=== PATIENT | female | born 1980 | race Caucasian/White ===

== ENCOUNTER 2017-01-18 16:24 | Inpatient (IN) | payer OTHER, MEDICARE ==
[~2017-01-18] VITALS: Ht 165.1 cm; Wt 97.7 kg
[~2017-01-18 16:24] MED LIST: ARGI500C2 PO; AVIATAB PO; BIOTCAP PO; CELE200C PO; FENT25DI T-DERMAL; FOLI20CA PO; GLUC1TAB41 PO; LEVO1CAP7 PO; LEXA20TA PO; METH2.5T PO; MILK200C2 PO; NITR0.1D T-DERMAL; OMEP20TA PO; TIZA1POW4 PO; VITA100064 PO; Z.0.NO CURRENT MEDS; [UNRECOGNIZED DRUG - CODE] IV
[2017-01-18 16:26] VITALS: BP 146/87; PULSE 127; RESP 18; TEMP 98.4; O2SAT 98
[2017-01-18 16:45] VITALS: BP 134/85; PULSE 111; RESP 20; TEMP 98.4; O2SAT 99
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
[2017-01-18] MEDS ORDERED: SODIUM CHLORIDE 0.9% FLUSH 10 ML FLUSH IVF PRN (17:00)
--- NOTE | 2017-01-18 17:21 | RADRPT ---
EXAM DATE/TIME: 01/18/2017 16:56 [facility] COMPARISON: No previous studies available for comparison. INDICATIONS : Chest pain and shortness of breath. MEDICAL HISTORY : None. SURGICAL HISTORY : Heart stent. ENCOUNTER: Initial ACUITY: 3 days PAIN SCORE: 9/10 LOCATION: Bilateral chest FINDINGS: Airspace process is present right lower lobe suspicious for pneumonia. Heart and mediastinum are unre markable for technique. CONCLUSION: Right lower lobe pneumonia. Mala Goldstein MD on January 18, 2017 at 17:18 Board Certified Radiologist. This report was verified electronically.
[2017-01-18 17:24] VITALS: BP_SYST 137; BP_SYST 140; BP_DIAS 84; BP_DIAS 85
[2017-01-18] MEDS ORDERED: SODIUM CHLOR 0.9% 1000 ML INJ 1,000 ML IV ONE (17:24)
[2017-01-18] MEDS ORDERED: cefTRIAXone INJ 2,000 MG in SODIUM CHLORIDE 0.9% INJ 100 ML IV STA (17:24)
[2017-01-18] MEDS ORDERED: AZITHROMYCIN INJ 500 MG in SODIUM CHLOR 0.9% 250 ML INJ 250 ML IV STA (17:24)
[2017-01-18] MEDS ORDERED: OMEP40CA2 PO (18:10)
[2017-01-18] MEDS ORDERED: METO25TA3 PO (18:10)
[2017-01-18] MEDS ORDERED: FOLI1TAB6 PO (18:10)
[2017-01-18] MEDS ORDERED: TIZA4TAB PO (18:10)
[2017-01-18] MEDS ORDERED: AMIT25TA9 PO (18:13)
[2017-01-18 19:10] LABS: AUTOMATED NEUTROPHIL # 6.2 TH/MM3 (1.8-7.7); BASOPHIL # 0.1 TH/MM3 (0-0.2); BASOPHIL % 0.6 % (0.0-2.0); EOSINOPHIL # 0.1 TH/MM3 (0-0.4); EOSINOPHIL % 0.8 % (0.0-4.0); HEMATOCRIT 32.7 % (35.0-46.0); HEMO FLAGS DIFF FINAL; LYMPH % 13.1 % (9.0-44.0); LYMPHOCYTE # 1.1 TH/MM3 (1.0-4.8); MEAN CELL VOLUME 84.1 FL (80.0-100.0); MEAN CORPUSCULAR HEMOGLOBIN 28.4 PG (27.0-34.0); MEAN CORPUSCULAR HGB CONC 33.8 % (32.0-36.0); MONO % 13.6 % (0.0-8.0); NEUT % 71.9 % (16.0-70.0); PLATELET COUNT 458 TH/MM3 (150-450); RED BLOOD COUNT 3.89 MIL/MM3 (4.00-5.30); RED CELL DISTRIBUTION WIDTH 15.7 % (11.6-17.2); WHITE BLOOD COUNT 8.6 TH/MM3 (4.0-11.0)
--- NOTE | 2017-01-18 19:26 | PD ---
Data Data Last Documented VS Vital Signs Date Time Temp Pulse Resp B/P Pulse Ox O2 Delivery O2 Flow Rate FiO2 01/18/17 21:50 91 16 142/86 99 Room Air 01/18/17 16:45 2 01/18/17 16:45 98.4 Orders Electrocardiogram (01/18/17 ) Ckmb (Isoenzyme) Profile (01/18/17 16:46) Complete Blood Count With Diff (01/18/17 16:46) Comprehensive Metabolic Panel (01/18/17 16:46) D-Dimer (01/18/17 16:46) Magnesium (Mg) (01/18/17 16:46) Prothrombin Time / Inr (Pt) (01/18/17 16:46) Act Partial Throm Time (Ptt) (01/18/17 16:46) Troponin I (01/18/17 16:46) Chest, Single Ap (01/18/17 16:46) Ecg Monitoring (01/18/17 16:46) Bilateral Bp Monitoring (01/18/17 16:46) Iv Access Insert/Monitor (01/18/17 16:46) Oximetry (01/18/17 16:46) Oxygen Administration (01/18/17 16:46) Sodium Chloride 0.9% Flush (Ns Flush) (01/18/17 17:00) Vascular Access Team Consult/P PRN (01/18/17 16:59) Vascular Poc Ultrasound (01/18/17 ) Lactic Acid Sepsis Protocol (01/18/17 17:24) Blood Culture (01/18/17 17:24) Ceftriaxone Inj (Rocephin Inj) (01/18/17 17:24) Azithromycin Inj (Zithromax Inj) (01/18/17 17:24) Sodium Chlor 0.9% 1000 Ml Inj (Ns 1000 M (01/18/17 17:24) Ct Pulmonary Angiogram (01/18/17 21:22) Iohexol 350 Inj (Omnipaque 350 Inj) (01/18/17 22:01) Admit Order (Ed Use Only) (01/18/17 22:36) Enoxaparin Inj (Lovenox Inj) (01/18/17 22:45) Rivaroxaban (Xarelto) (01/18/17 22:45) Labs Laboratory Tests Test 01/18/17 01/18/17 18:25 20:40 White Blood Count 8.6 TH/MM3 Red Blood Count 3.89 MIL/MM3 Hemoglobin 11.0 GM/DL Hematocrit 32.7 % Mean Corpuscular Volume 84.1 FL Mean Corpuscular Hemoglobin 28.4 PG Mean Corpuscular Hemoglobin 33.8 % Concent Red Cell Distribution Width 15.7 % Platelet Count 458 TH/MM3 Mean Platelet Volume 7.2 FL Neutrophils (%) (Auto) 71.9 % Lymphocytes (%) (Auto) 13.1 % Monocytes (%) (Auto) 13.6 % Eosinophils (%) (Auto) 0.8 % Basophils (%) (Auto) 0.6 % Neutrophils # (Auto) 6.2 TH/MM3 Lymphocytes # (Auto) 1.1 TH/MM3 Monocytes # (Auto) 1.2 TH/MM3 Eosinophils # (Auto) 0.1 TH/MM3 Basophils # (Auto) 0.1 TH/MM3 CBC Comment DIFF FINAL Differential Comment Lactic Acid Level 1.1 mmol/L Prothrombin Time 10.5 SEC Prothromb Time International 1.0 RATIO Ratio Activated Partial 30.1 SEC Thromboplast Time D-Dimer Quantitative (PE/DVT) 1.15 MG/L FEU Sodium Level 137 MEQ/L Potassium Level 4.1 MEQ/L Chloride Level 105 MEQ/L Carbon Dioxide Level 26.4 MEQ/L Anion Gap 6 MEQ/L Blood Urea Nitrogen 10 MG/DL Creatinine 0.65 MG/DL Estimat Glomerular Filtration 103 ML/MIN Rate Random Glucose 106 MG/DL Calcium Level 8.3 MG/DL Magnesium Level 1.7 MG/DL Total Bilirubin 0.2 MG/DL Aspartate Amino Transf 28 U/L (AST/SGOT) Alanine Aminotransferase 36 U/L (ALT/SGPT) Alkaline Phosphatase 136 U/L Total Creatine Kinase 26 U/L Troponin I LESS THAN 0.02 NG/ML Total Protein 7.0 GM/DL Albumin 2.7 GM/DL [facility] Supervised Visit with PAULA: No Narrative Course Patient signed out to me by previous provider. Please see associated note for further details. Injured patient is a 36-year-old female with history of SLE, RA here with chest pain radiating to the back, primarily right sided. Some increasing symptom with deep breaths. Patient has notable right lower lobe pneumonia on chest x-ray. Initially tachycardic with heart rate in the 120s, normalizing upon recheck. Given her immunosuppression with methotrexate and belimumab therapy, patient given dose of Rocephin and azithromycin, IV fluids and signed out to me pending laboratory evaluation for hopeful disposition home. CBC, CMP, d-dimer, magnesium, coags, troponin, lactate, blood cultures were obtained and notable for slightly elevated d-dimer. Therefore CT pulmonary angiogram was obtained and unfortunately does show a right lower lobe pulmonary embolism. Patient given Lovenox, Xarelto will be admitted for further management and potential hypercoagulability workup. Critical Care Narrative Aggregate critical care time was 40 minutes. Time to perform other separately billable procedures was not included in the critical care time. My time did not include minutes spent treating any other patients simultaneously or on activities that did not directly contribute to the patient's treatment. The services I provided to this patient were to treat and/or prevent clinically significant deterioration that could result in: Cardio pulmonary decompensation , , disability I provided critical care services requiring my management, as noted below: Chart data review, documentation time, medication orders and management, vital sign assessments/reviewing monitor data, ordering and reviewing lab tests, ordering and interpreting/reviewing x-rays and diagnostic studies, care of the patient and discussion of the patient with the admitting physicians. Diagnosis Primary Impression: Pulmonary embolism Qualified Code: I26.99 - Other acute pulmonary embolism without acute cor pulmonale Additional Impression: Pneumonia Qualified Code: J18.1 - Pneumonia of right lower lobe due to infectious organism Admitting Information Admitting Physician Requests: Admit Condition: Stable Nadeen James MD Jan 18, 2017 19:26
[2017-01-18 19:27] VITALS: PULSE 99; RESP 16; O2SAT 100
[2017-01-18 20:00] VITALS: PULSE 96
[2017-01-18 21:19] LABS: APTT (PATIENT) 30.1 SEC (24.3-30.1); PROTHROMBIN TIME - PATIENT 10.5 SEC (9.8-11.6)
[2017-01-18 21:23] LABS: ANION GAP 6 MEQ/L (5-15); AST (GOT) 28 U/L (15-37); BICARBONATE 26.4 MEQ/L (21.0-32.0); BLOOD UREA NITROGEN 10 MG/DL (7-18); CHLORIDE 105 MEQ/L (98-107); GLOMERULAR FILTRATION RATE 103 ML/MIN (>89); MAGNESIUM 1.7 MG/DL (1.5-2.5); POTASSIUM 4.1 MEQ/L (3.5-5.1); SODIUM (NA) 137 MEQ/L (136-145)
[2017-01-18 21:24] LABS: ALT (GPT) 36 U/L (10-53)
[2017-01-18 21:28] LABS: ALKALINE PHOSPHATASE 136 U/L (45-117); TOTAL BILIRUBIN ADULT 0.2 MG/DL (0.2-1.0)
[2017-01-18 21:50] VITALS: BP 142/86; PULSE 91; RESP 16; O2SAT 99
[2017-01-18 21:54] LABS: CREATINE KINASE 26 U/L (26-192)
[2017-01-18] MEDS ORDERED: IOHEXOL 350 MG/ML 10 ML VIAL (for RAD DIAG) IV ONE (22:01)
--- NOTE | 2017-01-18 22:16 | RADRPT ---
EXAM DATE/TIME: 01/18/2017 21:51 [facility] COMPARISON: No previous studies available for comparison. INDICATIONS : Short of breath and mid sternal chest pain, evaluate for pulmonary emoblism. IV CONTRAST: 65 cc Omnipaque 350 (iohexol) IV RADIATION DOSE: 16.22 CTDIvol (mGy) MEDICAL HISTORY : Cardiovascular disease. Lupus. SURGICAL HISTORY : None. ENCOUNTER: Initial ACUITY: 4 - 6 days PAIN SCALE: 3/10 LOCATION: chest TECHNIQUE: Volumetric scanning of the chest was performed using a pulmonary embolism protocol MIP images were re constructed. Using automated exposure control and adjustment of the mA and/or kV according to patien t size, radiation dose was kept as low as reasonably achievable to obtain optimal diagnostic quality images. DICOM format image data is available electronically for review and comparison. Follow-up recommendations for incidentally detected pulmonary nodules are based at a minimum on nodul e size and patient risk factors according to Fleischner Society Guidelines. FINDINGS: PULMONARY ARTERIES: Pulmonary embolus seen posteromedially in the right lower lobe. Other pulmonary arteries are patent. No evidence of right ventricular strain. LUNGS: There is consolidation of the right lower lobe. Trace atelectasis dependently at the left base. PLEURAE: There is a smaller moderate right pleural effusion. MEDIASTINUM: There is good visualization of the great vessels of the middle mediastinum. No evidence of mediastin al or hilar adenopathy/mass. MUSCULOSKELETAL: Within normal limits for patient age. MISCELLANEOUS: The visualized upper abdominal organs demonstrate no acute abnormality. CONCLUSION: Right lower lobe pulmonary embolus with associated consolidation and small to moderate pleural effusi on. Sharath Yost MD on January 18, 2017 at 22:12 Board Certified Radiologist. This report was verified electronically.
[2017-01-18] MEDS ORDERED: ACETAMINOPHEN/HYDROcodone 325 MG/5 MG TAB PO PRN (22:45)
[2017-01-18] MEDS ORDERED: BISACODYL 10 MG SUPP RECTAL PRN (22:45)
[2017-01-18] MEDS ORDERED: MAGNESIUM HYDROXIDE SUSP 30 ML CUP PO PRN (22:45)
[2017-01-18] MEDS ORDERED: ONDANSETRON HCL 4 MG/2 ML VIAL IVP PRN (22:45)
[2017-01-18] MEDS ORDERED: RESP: ALBUTEROL 2.5 MG/IPRATROPIUM 0.5 MG NEB (PRN) NEB (22:45)
[2017-01-18] MEDS ORDERED: SENNOSIDES 8.6 MG TAB PO PRN (22:45)
[2017-01-18] MEDS ORDERED: ACETAMINOPHEN/HYDROcodone 325 MG/10 MG TAB PO PRN (22:45)
[2017-01-18] MEDS ORDERED: RIVAROXABAN 15 MG TAB PO ONE (22:45)
[2017-01-18] MEDS ORDERED: LACTULOSE SYRUP 20 GM/30 ML CUP PO PRN (22:45)
[2017-01-18] MEDS ORDERED: ACETAMINOPHEN 325 MG TAB PO PRN (22:45)
[2017-01-18] MEDS ORDERED: ENOXAPARIN SODIUM 100 MG/ML SYRINGE SQ ONE (22:45)
[2017-01-18] MEDS ORDERED: SODIUM CHLORIDE 0.9% FLUSH 10 ML FLUSH IV FLUSH PRN (22:45)
--- NOTE | 2017-01-18 22:48 | HHI.HP ---
[facility] Dora Calvo DO Admission Diagnosis pulmonary embolism, right lower lobe pneumonia Diagnoses: (1) PE (pulmonary thromboembolism) Diagnosis: Principal (2) PNA (pneumonia) Diagnosis: Principal (3) Chest pain Diagnosis: Principal (4) Chronic pain Diagnosis: Principal (5) Lupus Diagnosis: Principal Travel History International Travel<30 Days: No Contact w/Intl Traveler <30 Da: No Traveled to Known Affected Are: No History of Present Illness This is a 36-year-old female with a PMH of Lupus, Rheumatoid Arthritis, Chronic Back Pain and Recurrent UTI who presented to the ER with complaints of severe chest pain and right "thoracic pain" starting earlier today. States she's had left-sided chest pain for over 1yr, s/p recent Cardiac Cath w/ normal coronaries per patient. Today w/ right-sided chest pain and right thoracic pain , worse w/ exertion, unable to take deep breath. Denies fever, chills, cough or sick contacts. On arrival, BP 146/87, HR 127, O2 sat 98% on RA, Afebrile. CBC essentially unremarkable. Chemistry unremarkable. Troponin negative. D- dimer 1.15. [place] with right lower lobe pneumonia. CTA Pulm w/ right lower lobe PE and associated consolidation and small to moderate pleural effusion. Patient denies any previous history of PE. No recent travel, surgical intervention or prolonged immobilization, however she does report that she is on Disability due to her RA but is able to get in and out of bed on her own. Previously on OCP, off x1 month. No tobacco abuse. S/p Lovenox, Rocephin/ Zithro in ER. Review of Systems Except as stated in HPI: all other systems reviewed are Neg ROS: 14 point review of systems otherwise negative. Past Family Social History Past Medical History PMH: Lupus, Rheumatoid Arthritis, Chronic Back Pain and Recurrent UTI Past Surgical History PAST SURGICAL HISTORY: Cardiac Catheterization Allergies: Coded Allergies: Lisinopril (Verified Allergy, Severe, Anaphylaxis, 01/18/17) Macrobid (Verified Allergy, Severe, Nausea/Vomiting, 01/18/17) Shellfish (Verified Allergy, Severe, Hives, 01/18/17) Ibuprofen (Verified Allergy, Mild, FACIAL FLUSHING, 01/18/17) Family History PAST FAMILY HISTORY: Reviewed. No h/o DM or CAD Social History PAST SOCIAL HISTORY: Negative for alcohol, tobacco or drugs. Physical Exam Vital Signs Vital Signs Date Time Temp Pulse Resp B/P Pulse Ox O2 Delivery O2 Flow Rate FiO2 01/18/17 21:50 91 16 142/86 99 Room Air 01/18/17 19:27 99 16 100 Room Air 01/18/17 17:24 137/85 140/84 01/18/17 16:45 99 Nasal Cannula 2 01/18/17 16:45 99 Nasal Cannula 2 01/18/17 16:45 98.4 111 20 134/85 99 Nasal Cannula 2 01/18/17 16:45 111 20 134/85 99 Nasal Cannula 2 01/18/17 16:45 99 Nasal Cannula 2 01/18/17 16:26 98.4 127 18 146/87 98 Room Air Physical Exam PE: GENERAL: Pleasant young white female in no acute distress. at bedside. HEENT: PERRLA, EOMI. No scleral icterus or conjunctival pallor. No lid lag or facial droop. CARDIOVASCULAR: Regular rate and rhythm. No obvious murmurs to auscultation. No chest tenderness to palpation. RESPIRATORY: No obvious rhonchi or wheezing. Clear to auscultation. Breath sounds equal bilaterally. GASTROINTESTINAL: Abdomen soft, non-tender, nondistended. BS normal. MUSCULOSKELETAL: Extremities without clubbing, cyanosis, or edema. No obvious deformities. NEUROLOGICAL: Awake, alert and oriented x4. No focal neurologic deficits. Moving both upper and lower extremities spontaneously. Laboratory Laboratory Tests Test 01/18/17 01/18/17 18:25 20:40 White Blood Count 8.6 Red Blood Count 3.89 Hemoglobin 11.0 Hematocrit 32.7 Mean Corpuscular Volume 84.1 Mean Corpuscular Hemoglobin 28.4 Mean Corpuscular Hemoglobin 33.8 Concent Red Cell Distribution Width 15.7 Platelet Count 458 Mean Platelet Volume 7.2 Neutrophils (%) (Auto) 71.9 Lymphocytes (%) (Auto) 13.1 Monocytes (%) (Auto) 13.6 Eosinophils (%) (Auto) 0.8 Basophils (%) (Auto) 0.6 Neutrophils # (Auto) 6.2 Lymphocytes # (Auto) 1.1 Monocytes # (Auto) 1.2 Eosinophils # (Auto) 0.1 Basophils # (Auto) 0.1 CBC Comment DIFF FINAL Differential Comment Lactic Acid Level 1.1 Prothrombin Time 10.5 Prothromb Time International 1.0 Ratio Activated Partial 30.1 Thromboplast Time D-Dimer Quantitative (PE/DVT) 1.15 Sodium Level 137 Potassium Level 4.1 Chloride Level 105 Carbon Dioxide Level 26.4 Anion Gap 6 Blood Urea Nitrogen 10 Creatinine 0.65 Estimat Glomerular Filtration 103 Rate Random Glucose 106 Calcium Level 8.3 Magnesium Level 1.7 Total Bilirubin 0.2 Aspartate Amino Transf 28 (AST/SGOT) Alanine Aminotransferase 36 (ALT/SGPT) Alkaline Phosphatase 136 Total Creatine Kinase 26 Troponin I LESS THAN 0.02 Total Protein 7.0 Albumin 2.7 Date/Time Procedure Status Source Growth 01/18/17 18:25 Aerobic Blood Culture Received Blood Peripheral Pending 01/18/17 18:25 Anaerobic Blood Culture Received Blood Peripheral Pending Result Diagram: 01/18/17 1825 01/18/172039 Assessment and Plan Problem List: (1) PNA (pneumonia) ICD Code: J18.9 Status: Acute (2) PE (pulmonary thromboembolism) ICD Code: I26.99 Status: Acute (3) Chest pain ICD Code: R07.9 Status: Acute (4) Chronic pain ICD Code: G89.29 Status: Acute (5) Lupus ICD Code: M32.9 Status: Acute Assessment and Plan A/P: 1. PNA: CXR w/ RLL PNA, CTA Pulm w/ associated RLL consolidation, images reviewed by me. O2 sat stable. S/p Rocephin/Zithro in ER, will continue w/ IV Abx, DuoNeb as needed. 2. PE: D-dimer elevated at 1.15, CTA Pulm w/ RLL PE, images reviewed by me. No h/o PE, no recent travel, no surgical intervention, no prolonged immobilization beyond her norm. Off OCP x1 month. No tobacco abuse. In light of h/o Lupus, may benefit from hypercoagulable work up. S/p Lovenox/Xarelto in ER. Will continue w/ anticoagulation. DuoNeb prn/Symbicort for possible bronchospasm. 3. Chest Pain: h/o left-sided chest pain x1 year s/p Cardiac Cath w/ normal coronaries per patient, now w/ right-sided chest pain, likely secondary to underlying PE. Initial trop negative, EKG w/ no acute ischemia. Check serial cardiac enzymes. Resume home B-mi 4. Chronic Pain: Resume home medications. 5. Lupus: On Methotrexate and Benlysta. 6. DVT Prophylaxis: On anticoagulation for acute PE. 7. Social work for d/c planning as needed. 8. Case discussed w/ ER physician at length. Physician Certification 2 Midnight Certification Type: Admission for Inpatient Services Order for Inpatient Services The services are ordered in accordance with Medicare regulations or non- Medicare payer requirements, as applicable. In the case of services not specified as inpatient-only, they are appropriately provided as inpatient services in accordance with the 2-midnight benchmark. Estimated LOS (days): 2 days is the estimated time the patient will need to remain in the hospital, assuming treatment plan goals are met and no additional complications. Post-Hospital Plan: Not yet determined Winter Carrington MD Jan 18, 2017 22:48
[2017-01-19] VITALS (9 sets, daily range): BP systolic 109–140; BP diastolic 56–85; PULSE 92–105; RESP 18–20; TEMP 98.1–98.8; O2SAT 92–98
[2017-01-19 08:09] LABS: AUTOMATED NEUTROPHIL # 4.9 TH/MM3 (1.8-7.7); BASOPHIL % 0.5 % (0.0-2.0); EOSINOPHIL # 0.1 TH/MM3 (0-0.4); EOSINOPHIL % 1.5 % (0.0-4.0); HEMATOCRIT 31.9 % (35.0-46.0); HEMO FLAGS DIFF FINAL; LYMPH % 21.9 % (9.0-44.0); LYMPHOCYTE # 1.7 TH/MM3 (1.0-4.8); MEAN CELL VOLUME 85.7 FL (80.0-100.0); MEAN CORPUSCULAR HEMOGLOBIN 27.9 PG (27.0-34.0); MEAN CORPUSCULAR HGB CONC 32.5 % (32.0-36.0); MONO % 13.3 % (0.0-8.0); NEUT % 62.8 % (16.0-70.0); PLATELET COUNT 424 TH/MM3 (150-450); RED BLOOD COUNT 3.72 MIL/MM3 (4.00-5.30); RED CELL DISTRIBUTION WIDTH 15.5 % (11.6-17.2); WHITE BLOOD COUNT 7.8 TH/MM3 (4.0-11.0)
[2017-01-19 08:30] LABS: ANION GAP 6 MEQ/L (5-15); AST (GOT) 27 U/L (15-37); BICARBONATE 23.8 MEQ/L (21.0-32.0); BLOOD UREA NITROGEN 13 MG/DL (7-18); CHLORIDE 106 MEQ/L (98-107); GLOMERULAR FILTRATION RATE 95 ML/MIN (>89); POTASSIUM 4.1 MEQ/L (3.5-5.1); SODIUM (NA) 136 MEQ/L (136-145)
[2017-01-19 08:36] LABS: ALKALINE PHOSPHATASE 133 U/L (45-117); ALT (GPT) 36 U/L (10-53); TOTAL BILIRUBIN ADULT 0.4 MG/DL (0.2-1.0)
[2017-01-19] MEDS: SODIUM CHLORIDE 0.9% FLUSH 10 ML FLUSH IV FLUSH SCH ×2 (08:49→21:26)
[2017-01-19] MEDS: ENOXAPARIN SODIUM 100 MG/ML SYRINGE SQ SCH ×2 (08:49→21:25)
[2017-01-19] MEDS: DOCUSATE SODIUM 50 MG/SENNA 8.6 MG TAB PO SCH ×2 (08:49→21:26)
[2017-01-19] MEDS: BUDESONIDE-FORMOTEROL 160/4.5 MCG INHALER INH SCH ×2 (08:50→21:25)
[2017-01-19 10:03] LABS: BETA HCG QUANT LESS THAN 1 MIU/ML (0-5)
--- NOTE | 2017-01-19 12:51 | EKG ---
Date Performed: 01/18/2017 Time Performed: 16:45:05 PTAGE: 36 years EKG: SINUS TACHYCARDIA POSSIBLE LEFT ATRIAL ENLARGEMENT ABNORMAL RHYTHM ECG NO PREVIOUS TRACING DOCTOR: Guille Covington Interpretating Date/Time 01/19/2017 12:44:45
--- NOTE | 2017-01-19 13:41 | HHI.PR ---
Subjective Remarks Follow-up PE, pneumonia. Patient continues to have chest pain, worse with breathing/coughing. She also feels short of breath. No nausea, vomiting. Objective Vitals Vital Signs Date Time Temp Pulse Resp B/P Pulse Ox O2 Delivery O2 Flow Rate FiO2 01/19/17 08:00 98.4 94 20 116/73 92 01/19/17 07:54 96 01/19/17 04:00 98.1 92 20 109/56 95 01/19/17 00:23 98.3 94 20 122/79 96 01/19/17 00:00 96 01/18/17 21:50 91 16 142/86 99 Room Air 01/18/17 20:00 96 01/18/17 19:27 99 16 100 Room Air 01/18/17 17:24 137/85 140/84 01/18/17 16:45 99 Nasal Cannula 2 01/18/17 16:45 99 Nasal Cannula 2 01/18/17 16:45 98.4 111 20 134/85 99 Nasal Cannula 2 01/18/17 16:45 111 20 134/85 99 Nasal Cannula 2 01/18/17 16:45 99 Nasal Cannula 2 01/18/17 16:26 98.4 127 18 146/87 98 Room Air I/O 01/18/17 01/18/17 01/18/17 01/19/17 01/19/17 01/19/17 07:00 15:00 23:00 07:00 15:00 23:00 Intake Total 240 ml Balance 240 ml Intake Oral 240 ml # Voids 2 Result Diagram: 01/19/17 0701/19/[address] Angiography 01/18/172121 Signed Impressions: Service Date/Time: Wednesday, January 18, 2017 21:51 - CONCLUSION: Right lower lobe pulmonary embolus with associated consolidation and small to moderate pleural effusion. Sharath Yost MD Chest X-Ray 01/18/17 1646 Signed Impressions: Service Date/Time: Wednesday, January 18, 2017 16:56 - CONCLUSION: Right lower lobe pneumonia. Mala Goldstein MD Objective Remarks General: No acute distress. Heart: Regular rate and rhythm. No murmur. Lungs: Decreased breath sounds in right base. No wheezes, rales, or rhonchi. Breathing is nonlabored. Chest wall: Mild tenderness to palpation bilaterally. Abdomen: Soft, nontender, nondistended. Extremities: No lower extremity edema. Psych: Alert and oriented. Procedures None Urinary Catheter: No Vascular Central Line Catheter: No A/P Problem List: (1) PNA (pneumonia) ICD Code: J18.9 Status: Acute (2) PE (pulmonary thromboembolism) ICD Code: I26.99 Status: Acute (3) Chest pain ICD Code: R07.9 Status: Acute (4) Chronic pain ICD Code: G89.29 Status: Chronic (5) Lupus ICD Code: M32.9 Status: Chronic (6) Rheumatoid arthritis ICD Code: M06.9 Status: Chronic Assessment and Plan 1. Pulmonary embolus: CTA shows right lower lobe PE. Patient reports a car ride to [place] last month, but no other recent travel. She has been off oral contraceptive pills for the past month. Patient was given Lovenox and Xarelto in the ER. Continue Lovenox. 2. Chest pain: Secondary to above. Continue pain control. 3. Pneumonia: Continue antibiotics, supplemental oxygen. DuoNeb as needed. Incentive spirometer. 4. Chronic pain secondary to lupus, rheumatoid arthritis: Continue fentanyl patch. 5. Lupus, RA: Continue methotrexate weekly. On Benlysta as outpatient. Barry Nix MD Jan 19, 2017 13:41
[2017-01-19] MEDS: FOLIC ACID 1 MG TAB PO SCH (15:00)
[2017-01-19] MEDS ORDERED: fentaNYL 25 MCG/HR PATCH T-DERMAL SCH (15:00)
[2017-01-19] MEDS ORDERED: NON-FORMULARY DRUG (Biotin 5 MG) PO SCH (21:00)
[2017-01-19] MEDS: AMITRIPTYLINE HCL 25 MG TAB PO SCH (21:25)
[2017-01-19] MEDS: ESCITALOPRAM OXALATE 20 MG TAB PO SCH (21:25)
[2017-01-19] MEDS: PANTOPRAZOLE SOD 40 MG DELAYED RELEASE TAB PO SCH (21:25)
[2017-01-19] MEDS: METOPROLOL TARTRATE 25 MG TAB PO SCH (21:26)
[2017-01-19] MEDS: CELECOXIB 200 MG CAP PO SCH (21:26)
[2017-01-19] MEDS: AZITHROMYCIN INJ 500 MG in SODIUM CHLOR 0.9% 250 ML INJ 250 ML IV SCH (21:27)
[2017-01-19] MEDS: cefTRIAXone INJ 1,000 MG in SODIUM CHLORIDE 0.9% INJ 100 ML IV SCH (21:27)
[2017-01-20] VITALS (8 sets, daily range): BP systolic 101–139; BP diastolic 58–80; PULSE 87–101; RESP 16–20; TEMP 98–99.4; O2SAT 95–99
[2017-01-20] MEDS: CELECOXIB 200 MG CAP PO SCH ×2 (08:35→21:07)
[2017-01-20] MEDS: METOPROLOL TARTRATE 25 MG TAB PO SCH ×2 (08:35→21:08)
[2017-01-20] MEDS: CHOLECALCIFEROL (VIT D3) 1000 UNIT TAB PO SCH (08:36)
[2017-01-20] MEDS: SODIUM CHLORIDE 0.9% FLUSH 10 ML FLUSH IV FLUSH SCH ×2 (08:36→21:08)
[2017-01-20] MEDS: BUDESONIDE-FORMOTEROL 160/4.5 MCG INHALER INH SCH ×2 (08:36→21:09)
[2017-01-20] MEDS: ENOXAPARIN SODIUM 100 MG/ML SYRINGE SQ SCH (08:36)
[2017-01-20] MEDS: DOCUSATE SODIUM 50 MG/SENNA 8.6 MG TAB PO SCH ×2 (08:36→21:07)
[2017-01-20] MEDS ORDERED: [UNRECOGNIZED DRUG - OTHER] PO SCH (09:00)
[2017-01-20] MEDS ORDERED: ARGININE 500 MG PO SCH (09:00)
[2017-01-20] MEDS ORDERED: LEVOCARNITINE PO SCH (09:00)
--- NOTE | 2017-01-20 10:58 | HHI.PR ---
Subjective Remarks Follow up PE. Patient still reporting chest pain with deep breaths. States that it does seem to be improving. Cough is nonproductive. Objective Vitals Vital Signs Date Time Temp Pulse Resp B/P Pulse Ox O2 Delivery O2 Flow Rate FiO2 01/20/17 08:00 Room Air 01/20/17 08:00 98.8 87 20 122/59 95 01/20/17 04:00 98.0 91 18 101/60 95 01/20/17 04:00 Room Air 01/20/17 00:00 Room Air 01/20/17 00:00 98.7 98 16 128/68 96 01/19/17 20:00 Room Air 01/19/17 20:00 98.8 105 18 140/85 98 01/19/17 19:59 102 01/19/17 16:33 20 01/19/17 16:00 98.7 97 20 138/70 96 01/19/17 12:00 98.2 96 20 120/68 96 I/O 01/19/17 01/19/17 01/19/17 01/20/17 01/20/17 01/20/17 07:00 15:00 23:00 07:00 15:00 23:00 Intake Total 240 ml 720 ml 830 ml 240 ml Balance 240 ml 720 ml 830 ml 240 ml Intake Oral 240 ml 720 ml 480 ml 240 ml IV Total 350 ml # Voids 2 3 2 1 # Bowel Movements 0 1 1 Result Diagram: 01/19/17 0700 01/19/17 [address] Angiography 01/18/172121 Signed Impressions: Service Date/Time: Wednesday, January 18, 2017 21:51 - CONCLUSION: Right lower lobe pulmonary embolus with associated consolidation and small to moderate pleural effusion. Sharath Yost MD Chest X-Ray 01/18/17 1646 Signed Impressions: Service Date/Time: Wednesday, January 18, 2017 16:56 - CONCLUSION: Right lower lobe pneumonia. Mala Goldstein MD Objective Remarks General: No acute distress. Heart: Regular rate and rhythm. No murmur. Lungs: Decreased breath sounds in right base. No wheezes, rales, or rhonchi. Breathing is nonlabored. Chest wall: Mild tenderness to palpation bilaterally. Abdomen: Soft, nontender, nondistended. Extremities: No lower extremity edema. Psych: Alert and oriented. Procedures None Urinary Catheter: No Vascular Central Line Catheter: No A/P Problem List: (1) PNA (pneumonia) ICD Code: J18.9 Status: Acute (2) PE (pulmonary thromboembolism) ICD Code: I26.99 Status: Acute (3) Chest pain ICD Code: R07.9 Status: Acute (4) Chronic pain ICD Code: G89.29 Status: Chronic (5) Lupus ICD Code: M32.9 Status: Chronic (6) Rheumatoid arthritis ICD Code: M06.9 Status: Chronic Assessment and Plan 1. Pulmonary embolus: CTA shows right lower lobe PE. Patient reports a car ride to [place] last month, but no other recent travel. She has been off oral contraceptive pills for the past month. Patient was given Lovenox and Xarelto in the ER. Switch to Xarelto. Consult hematology. May need hypercoagulable workup. 2. Chest pain: Secondary to above. Continue pain control. 3. Pneumonia: Continue antibiotics, supplemental oxygen. DuoNeb as needed. Incentive spirometer. 4. Chronic pain secondary to lupus, rheumatoid arthritis: Continue fentanyl patch. 5. Lupus, RA: Continue methotrexate weekly. On Benlysta as outpatient. Discharge Planning Possible discharge home tomorrow. Barry Nix MD Jan 20, 2017 10:58
--- NOTE | 2017-01-20 13:53 | MB ---
cc: BILL NOLASCO DATE OF CONSULTATION: 01/20/2017. REASON FOR CONSULTATION: Patient with pulmonary embolism. She has a history of rheumatoid arthritis and lupus and presented with shortness of breath and chest pain. CHIEF COMPLAINT: Shortness of breath, chest pain. HISTORY OF PRESENT ILLNESS" Ms. Goldman is a 36-year-old female who has a history of lupus and rheumatoid arthritis who is currently on methotrexate. She has history of recurrent urinary tract infections and back pain. She presented to the emergency department with chest pain which began approximately 24 hours prior to her admission to the hospital. She has had cardiac evaluation in the past and also has undergone cardiac catheterization which showed normal coronary arteries. On admission, the patient underwent CT angiogram which confirmed pulmonary embolism in the right lower lobe posteriorly daily. The patient was started on Lovenox on admission. She has been transitioned to Xarelto 15 milligrams p.o. twice a day. She does not have any past history of DVTs. She does not endorse any prolonged car travel or air travel. She has not been in any kind of trauma / accident. She does endorse being on oral contraceptives but she has been off them for one month. She denies any hemoptysis. There is no family history of blood clot. REVIEW OF SYSTEMS: A comprehensive 14-point review of systems was completed which is negative except as described in the history of present illness. PAST MEDICAL HISTORY: 1. Lupus. 2. Rheumatoid arthritis. 3. Chronic back pain. 4. Recurrent urinary tract infections. PAST SURGICAL HISTORY: Cardiac catheterization. MEDICATIONS: 1. Methotrexate 20 milligrams p.o. q. 7 days. 2. She is now on Xarelto 50 milligrams p.o. twice a day. 3. Vitamin ____ 1000 units daily. 4. Ceftriaxone 1000 milligrams IV q. 24 hours. 5. Azithromycin 500 milligrams IV q. 24 hours. 6. Elavil 25 milligrams p.o. at bedtime. 7. Celebrex 200 milligrams p.o. twice a day. 8. Lexapro 20 milligrams p.o. at bedtime. 9. Metoprolol 12.5 milligrams p.o. twice a day. 10. Pantoprazole 40 milligrams p.o. at bedtime. 11. Fentanyl patch 25 micrograms q. 72 hours. 12. Folic acid 1 milligram p.o. daily. 13. Budesonide two puffs INH q. 12 hours. 14. Docusate one tablet p.o. twice a day. 15. DuoNeb one amp q. 4 hours PRN. 16. Zofran 4 milligrams IV q. 6 hours. 17. Tylenol 650 p.o. q. 6 hours. 18. Mccoll 5/325 one tablet p.o. q. 4 hours. 19. Milk of magnesia 30 cc one tablet p.o. q. 12 hours. 20. Senna 17.2 milligrams p.o. q. 12 hours. 21. Dulcolax 10 milligrams PRN. 22. Lactulose 30 cc daily. ALLERGIES: 1. IBUPROFEN. 2. LISINOPRIL. 3. MACROBID. 4. SHELLFISH. PHYSICAL EXAMINATION: VITAL SIGNS: Blood pressure is 122/48, pulse is in the 80s, temperature is 98.2, O2 sats are 95% on room air. GENERAL: In no apparent distress. HEAD, EYES, EARS, NOSE, THROAT: Pupils are equal, round and reactive to light. Extraocular muscles intact. No oral thrush. No oral lesions. NECK: The neck is supple. No jugular venous distention. No bruits. No lymphadenopathy. CARDIAC: S1-S2. Regular rate and rhythm. CHEST: Clear to auscultation bilaterally. ABDOMEN: The abdomen is soft, nontender and nondistended. Bowel sounds are present. EXTREMITIES: No edema, erythema or cyanosis. SKIN: Without any petechiae, lesions or bruises. NEUROLOGIC: No focal deficit. PSYCHIATRIC: Mood and affect are appropriate. FAMILY HISTORY: Family history was reviewed and is noncontributory to this admission. SOCIAL HISTORY: She is . No alcohol, drugs or tobacco abuse. LABORATORY DATA: WBC 7.80, hemoglobin is 10.4, MCV 5.7, platelet count 424,000. Serum chemistries show sodium 136, potassium 4.1, CO2 23.8, creatinine 0.7, GFR is 95, calcium is 8.4, total bilirubin 0.4, AST 27, ALT 36, alkaline phosphatase of 133. D-dimers are elevated at 1.15. IMAGING STUDIES: Was reviewed and discussed in the history of present illness. Chest x-ray shows right lower lobe pneumonia. CTA shows pulmonary embolism as stated above. ASSESSMENT: This is a 36-year-old female who has a past medical history of lupus, rheumatoid arthritis, chronic back pain and recurrent urinary tract infections who presents to the emergency department with acute dyspnea and chest pain. She underwent a CT angiogram which showed a pulmonary embolus. 1. Pulmonary embolus in the right lower lobe posteromedially. This occurred in an unprovoked setting; however, she was on oral contraceptives until the last month. She has a history of lupus, which predisposes her to having a hypercoagulable state. She does not have any history of GI bleeding or peptic ulcers. I agree with treating this patient with Xarelto. We will obtain hypercoagulable workup. We should also obtain a Doppler ultrasound of lower extremities to document whether she had any DVT. She should follow up in the hematology clinic with me four to six weeks after discharge. 2. Mild normocytic anemia. Obtain anemia studies. Obtain stool hemoccult. 3. Right lower lobe pneumonia currently on antibiotics. 4. History of lupus and rheumatoid arthritis currently on methotrexate. Thank you for allowing me to participate in the care of this patient. I will continue to follow this patient along. MD FAROOQ Foreman/ELIEL /1:02 PM /1:41 PM
[2017-01-20] MEDS: FOLIC ACID 1 MG TAB PO SCH (15:00)
[2017-01-20] MEDS: RIVAROXABAN 15 MG TAB PO SCH (21:07)
[2017-01-20] MEDS: AMITRIPTYLINE HCL 25 MG TAB PO SCH (21:07)
[2017-01-20] MEDS: ESCITALOPRAM OXALATE 20 MG TAB PO SCH (21:07)
[2017-01-20] MEDS: PANTOPRAZOLE SOD 40 MG DELAYED RELEASE TAB PO SCH (21:07)
[2017-01-20] MEDS: cefTRIAXone INJ 1,000 MG in SODIUM CHLORIDE 0.9% INJ 100 ML IV SCH (21:10)
[2017-01-20] MEDS: AZITHROMYCIN INJ 500 MG in SODIUM CHLOR 0.9% 250 ML INJ 250 ML IV SCH (21:11)
[2017-01-21] VITALS (8 sets, daily range): BP systolic 107–126; BP diastolic 59–73; PULSE 84–97; RESP 18–20; TEMP 97.7–99.2; O2SAT 95–97
[2017-01-21] MEDS: DOCUSATE SODIUM 50 MG/SENNA 8.6 MG TAB PO SCH ×2 (08:36→21:00)
[2017-01-21] MEDS: RIVAROXABAN 15 MG TAB PO SCH ×2 (08:36→21:23)
[2017-01-21] MEDS: CHOLECALCIFEROL (VIT D3) 1000 UNIT TAB PO SCH (08:36)
[2017-01-21] MEDS: CELECOXIB 200 MG CAP PO SCH ×2 (08:36→21:24)
[2017-01-21] MEDS: METOPROLOL TARTRATE 25 MG TAB PO SCH ×2 (08:36→21:24)
[2017-01-21] MEDS: BUDESONIDE-FORMOTEROL 160/4.5 MCG INHALER INH SCH ×2 (08:37→21:23)
[2017-01-21] MEDS: SODIUM CHLORIDE 0.9% FLUSH 10 ML FLUSH IV FLUSH SCH ×2 (08:37→21:24)
--- NOTE | 2017-01-21 10:46 | RADRPT ---
EXAM DATE/TIME: 01/21/2017 09:20 [facility] COMPARISON: CT PULMONARY ANGIOGRAM, January 18, 2017, 21:51. INDICATIONS : Bilateral leg swelling and pain. MEDICAL HISTORY : Hypertension. Gastroesophageal reflux disease. Arthritis. Herniated disks. Pul monary emboli. SURGICAL HISTORY : Cardiac cath. ENCOUNTER: Initial ACUITY: 1 day PAIN SCORE: 2/10 LOCATION: Bilateral legs. TECHNIQUE: Venous ultrasound of the left and right leg was performed from the inguinal ligament t o the proximal calf. Real-time, color Doppler and spectral tracing, compression and augmentation adrian hniques were used. FINDINGS: RIGHT LEG: There is normal compressibility of the deep venous system from the inguinal region to the proximal calf. No echogenic clot is seen in the lumen of the common femoral, femoral, popliteal, and posterior tibial veins. There is a normal response of the venous system to proximal and distal augmentation and respiration. LEFT LEG: There is normal compressibility of the deep venous system from the inguinal region to t he proximal calf. No echogenic clot is seen in the lumen of the common femoral, femoral, popliteal, and posterior tibial veins. There is a normal response of the venous system to proximal and distal a ugmentation and respiration. CONCLUSION: 1. No sonographic evidence for extremity DVT. 2. The peripheral iliac veins are visualized and appear patent. A partially occlusive central iliac D VT can not be excluded by this examination. Therefore, differential considerations for patient's acut e pulmonary embolism include complete displacement of an acute lower extremity DVT vs a more central iliac/IVC source not demonstrated on this exam. Martin Juan MD on January 21, 2017 at 10:40 Board Certified Radiologist. This report was verified electronically.
[2017-01-21 14:46] LABS: ANA SCREEN POS (NEG)
--- NOTE | 2017-01-21 15:22 | HHI.PR ---
Subjective Remarks Follow-up PE. The patient is reporting intermittent chest pains, which are chronic. She is requesting the nitroglycerin patch which she has been using at home for the past 2-3 months. This is managed by her senior interaction designer at the [facility] in [facility]. She denies shortness of breath at this time. Objective Vitals Vital Signs Date Time Temp Pulse Resp B/P Pulse Ox O2 Delivery O2 Flow Rate FiO2 01/21/17 12:00 98.3 91 20 107/59 95 01/21/17 08:50 84 01/21/17 08:50 Room Air 01/21/17 08:00 97.7 89 20 123/73 95 01/21/17 04:00 Room Air 01/21/17 04:00 98.0 84 20 119/70 95 01/21/17 00:00 Room Air 01/21/17 00:00 98.3 94 20 122/62 97 01/20/17 20:22 93 01/20/17 20:00 Room Air 01/20/17 20:00 99.4 101 20 139/69 99 01/20/17 16:00 99.0 95 18 122/80 95 I/O 01/20/17 01/20/17 01/20/17 01/21/17 01/21/17 01/21/17 06:59 14:59 22:59 06:59 14:59 22:59 Intake Total 240 ml 480 ml 346 ml Balance 240 ml 480 ml 346 ml Intake Oral 240 ml 480 ml IV Total 346 ml # Voids 1 2 2 # Bowel Movements 1 0 0 Result Diagram: 01/19/17 0700 01/19/17 0700 Imaging Last Impressions Lower Extremity Ultrasound 01/21/17 0000 Signed Impressions: Service Date/Time: Saturday, January 21, 2017 09:20 - CONCLUSION: 1. No sonographic evidence for extremity DVT. 2. The peripheral iliac veins are visualized and appear patent. A partially occlusive central iliac DVT can not be excluded by this examination. Therefore, differential considerations for patient's acute pulmonary embolism include complete displacement of an acute lower extremity DVT vs a more central iliac/IVC source not demonstrated on this exam. Martin Juan MD CT Angiography 01/18/172121 Signed Impressions: Service Date/Time: Wednesday, January 18, 2017 21:51 - CONCLUSION: Right lower lobe pulmonary embolus with associated consolidation and small to moderate pleural effusion. Sharath Yost MD Chest X-Ray 01/18/17 1646 Signed Impressions: Service Date/Time: Wednesday, January 18, 2017 16:56 - CONCLUSION: Right lower lobe pneumonia. Mala Goldstein MD Objective Remarks General: No acute distress. Heart: Regular rate and rhythm. No murmur. Lungs: Decreased breath sounds in right base. No wheezes, rales, or rhonchi. Breathing is nonlabored. Chest wall: Mild tenderness to palpation bilaterally. Abdomen: Soft, nontender, nondistended. Extremities: No lower extremity edema. Psych: Alert and oriented. Procedures None Urinary Catheter: No Vascular Central Line Catheter: No A/P Problem List: (1) PNA (pneumonia) ICD Code: J18.9 Status: Acute (2) PE (pulmonary thromboembolism) ICD Code: I26.99 Status: Acute (3) Chest pain ICD Code: R07.9 Status: Acute (4) Chronic pain ICD Code: G89.29 Status: Chronic (5) Lupus ICD Code: M32.9 Status: Chronic (6) Rheumatoid arthritis ICD Code: M06.9 Status: Chronic Assessment and Plan 1. Pulmonary embolus: CTA shows right lower lobe PE. Patient reports a car ride to [place] last month, but no other recent travel. She has been off oral contraceptive pills for the past month. Patient was given Lovenox and Xarelto in the ER. Continue Xarelto. Appreciate hematology recommendations. Hypercoagulable panel ordered. Lower extremity ultrasounds do not show evidence of DVT. 2. Chest pain: Patient has chronic intermittent chest pain. Resume nitroglycerin patch, which she states that she has been using for the past 2-3 months as prescribed by her senior interaction designer. Continue pain control. 3. Pneumonia: Continue antibiotics, supplemental oxygen. DuoNeb as needed. Incentive spirometer. 4. Chronic pain secondary to lupus, rheumatoid arthritis: Continue fentanyl patch. 5. Lupus, RA: Continue methotrexate weekly. On Benlysta as outpatient. Discharge Planning Possible discharge home tomorrow. Barry Nix MD Jan 21, 2017 15:22
[2017-01-21] MEDS: FOLIC ACID 1 MG TAB PO SCH (16:00)
[2017-01-21] MEDS: NITROGLYCERIN 0.1 MG/HR PATCH T-DERMAL SCH (17:26)
[2017-01-21] MEDS: PANTOPRAZOLE SOD 40 MG DELAYED RELEASE TAB PO SCH (21:23)
[2017-01-21] MEDS: AMITRIPTYLINE HCL 25 MG TAB PO SCH (21:24)
[2017-01-21] MEDS: ESCITALOPRAM OXALATE 20 MG TAB PO SCH (21:24)
[2017-01-21] MEDS: cefTRIAXone INJ 1,000 MG in SODIUM CHLORIDE 0.9% INJ 100 ML IV SCH (21:25)
[2017-01-21] MEDS: AZITHROMYCIN INJ 500 MG in SODIUM CHLOR 0.9% 250 ML INJ 250 ML IV SCH (21:25)
[2017-01-22 01:10] VITALS: BP 120/70; PULSE 88; RESP 18; TEMP 97.6; O2SAT 96
[2017-01-22 05:25] VITALS: BP 127/60; PULSE 58; RESP 18; TEMP 97.8; O2SAT 95
[2017-01-22 07:00] LABS: AUTOMATED NEUTROPHIL # 4.1 TH/MM3 (1.8-7.7); BASOPHIL # 0.1 TH/MM3 (0-0.2); BASOPHIL % 0.8 % (0.0-2.0); EOSINOPHIL # 0.3 TH/MM3 (0-0.4); EOSINOPHIL % 3.9 % (0.0-4.0); HEMATOCRIT 30.2 % (35.0-46.0); HEMO FLAGS DIFF FINAL; LYMPH % 23.7 % (9.0-44.0); LYMPHOCYTE # 1.6 TH/MM3 (1.0-4.8); MEAN CELL VOLUME 84.6 FL (80.0-100.0); MEAN CORPUSCULAR HEMOGLOBIN 28.5 PG (27.0-34.0); MEAN CORPUSCULAR HGB CONC 33.7 % (32.0-36.0); MONO % 11.5 % (0.0-8.0); NEUT % 60.1 % (16.0-70.0); PLATELET COUNT 451 TH/MM3 (150-450); RED BLOOD COUNT 3.57 MIL/MM3 (4.00-5.30); RED CELL DISTRIBUTION WIDTH 15.9 % (11.6-17.2); WHITE BLOOD COUNT 6.8 TH/MM3 (4.0-11.0)
[2017-01-22 07:12] LABS: BICARBONATE 26.4 MEQ/L (21.0-32.0); POTASSIUM 4.2 MEQ/L (3.5-5.1)
[2017-01-22 07:54] VITALS: PULSE 71
[2017-01-22 08:00] VITALS: BP 112/69; PULSE 82; RESP 20; TEMP 97.7; O2SAT 95
[2017-01-22] MEDS: DOCUSATE SODIUM 50 MG/SENNA 8.6 MG TAB PO SCH (09:00)
[2017-01-22] MEDS: RIVAROXABAN 15 MG TAB PO SCH (09:27)
[2017-01-22] MEDS: CHOLECALCIFEROL (VIT D3) 1000 UNIT TAB PO SCH (09:27)
[2017-01-22] MEDS: CELECOXIB 200 MG CAP PO SCH (09:27)
[2017-01-22] MEDS: METOPROLOL TARTRATE 25 MG TAB PO SCH (09:28)
[2017-01-22] MEDS: BUDESONIDE-FORMOTEROL 160/4.5 MCG INHALER INH SCH (09:29)
[2017-01-22] MEDS: NITROGLYCERIN 0.1 MG/HR PATCH T-DERMAL SCH (09:29)
[2017-01-22] MEDS: SODIUM CHLORIDE 0.9% FLUSH 10 ML FLUSH IV FLUSH SCH (09:30)
[2017-01-22] MEDS ORDERED: XARE15TA PO (11:02)
[2017-01-22] MEDS ORDERED: CEFU1TAB20 PO (11:02)
[2017-01-22] MEDS ORDERED: AZIT500T2 PO (11:02)
--- NOTE | 2017-01-22 11:02 | HHI.DCPOC ---
Discharge Care Plan Diagnosis: (1) Pneumonia (2) Pulmonary embolism (3) Chest pain (4) Rheumatoid arthritis (5) Chronic pain (6) Lupus Goals to Promote Your Health * To prevent worsening of your condition and complications * To maintain your health at the optimal level Directions to Meet Your Goals Take your medications as prescribed Follow your dietary instruction Follow activity as directed Keep your appointments as scheduled Take your immunizations and boosters as scheduled If your symptoms worsen call your PCP, if no PCP go to Urgent Care Center or Emergency Room Smoking is Dangerous to Your Health. Avoid second hand smoke Call the 24-hour hour crisis hotline for domestic abuse at Barry Nix MD Jan 22, 2017 11:02
--- NOTE | 2017-01-22 11:05 | HHI.DS ---
Discharge Summary Admission Date Jan 18, 2017 at 22:38 Discharge Date: Jan 22, 2017 Admitting Diagnosis pulmonary embolism, right lower lobe pneumonia (1) PE (pulmonary thromboembolism) ICD Code: I26.99 (2) PNA (pneumonia) ICD Code: J18.9 (3) Chest pain ICD Code: R07.9 (4) Chronic pain ICD Code: G89.29 (5) Lupus ICD Code: M32.9 (6) Rheumatoid arthritis ICD Code: M06.9 Procedures None Brief History - From Admission This is a 36-year-old female with a PMH of Lupus, Rheumatoid Arthritis, Chronic Back Pain and Recurrent UTI who presented to the ER with complaints of severe chest pain and right "thoracic pain" starting earlier today. States she's had left-sided chest pain for over 1yr, s/p recent Cardiac Cath w/ normal coronaries per patient. Today w/ right-sided chest pain and right thoracic pain , worse w/ exertion, unable to take deep breath. Denies fever, chills, cough or sick contacts. On arrival, BP 146/87, HR 127, O2 sat 98% on RA, Afebrile. CBC essentially unremarkable. Chemistry unremarkable. Troponin negative. D- dimer 1.15. Levering with right lower lobe pneumonia. CTA Pulm w/ right lower lobe PE and associated consolidation and small to moderate pleural effusion. Patient denies any previous history of PE. No recent travel, surgical intervention or prolonged immobilization, however she does report that she is on Disability due to her RA but is able to get in and out of bed on her own. Previously on OCP, off x1 month. No tobacco abuse. S/p Lovenox, Rocephin/ Zithro in ER. CBC/BMP: 01/22/17 0530 01/22/17 0530 Significant Findings Laboratory Tests Test 01/19/17 01/21/17 01/22/17 14:22 08:20 05:30 Troponin I LESS THAN 0.02 NG/ML (0.02-0.05) Anti-Nuclear Antibody Screen POS (NEG) Red Blood Count 3.57 MIL/MM3 (4.00-5.30) Hemoglobin 10.2 GM/DL (11.6-15.3) Hematocrit 30.2 % (35.0-46.0) Platelet Count 451 TH/MM3 (150-450) Monocytes (%) (Auto) 11.5 % (0.0-8.0) Imaging Last Impressions Lower Extremity Ultrasound 01/21/17 0000 Signed Impressions: Service Date/Time: Saturday, January 21, 2017 09:20 - CONCLUSION: 1. No sonographic evidence for extremity DVT. 2. The peripheral iliac veins are visualized and appear patent. A partially occlusive central iliac DVT can not be excluded by this examination. Therefore, differential considerations for patient's acute pulmonary embolism include complete displacement of an acute lower extremity DVT vs a more central iliac/IVC source not demonstrated on this exam. Martin Juan MD CT Angiography 01/18/172 Signed Impressions: Service Date/Time: Wednesday, January 18, 2017 21:51 - CONCLUSION: Right lower lobe pulmonary embolus with associated consolidation and small to moderate pleural effusion. Sharath Yost MD Chest X-Ray 01/18/17 1646 Signed Impressions: Service Date/Time: Wednesday, January 18, 2017 16:56 - CONCLUSION: Right lower lobe pneumonia. Mala Goldstein MD PE at Discharge General: No acute distress. Heart: Regular rate and rhythm. No murmur. Lungs: Decreased breath sounds in right base. No wheezes, rales, or rhonchi. Breathing is nonlabored. Chest wall: Mild tenderness to palpation bilaterally. Abdomen: Soft, nontender, nondistended. Extremities: No lower extremity edema. Psych: Alert and oriented. Pt update on day of discharge The patient has no complaints at this time. She denies chest pain or dyspnea. Has been ambulating without difficulty. Feels ready to go home. Hospital Course The patient was admitted for management of ulnar embolus and right lower lobe pneumonia. She was continued on anticoagulation and antibiotics. She was switched from Lovenox to Xarelto. Hematology was consulted. Lower extremity Doppler ultrasound showed no evidence of DVT. Hemoglobin remained stable. Patient was felt to be stable for discharge home. Pt Condition on Discharge: Stable Discharge Disposition: Discharge Home Discharge Time: > 30 minutes Discharge Instructions DIET: Follow Instructions for: As Tolerated, No Restrictions Activities you can perform: Regular-No Restrictions Follow up Referrals: Oncology - 1 Week with Brennan Olvera MD PCP Follow-up - 1 Week New Medications: Azithromycin (Azithromycin) 500 Mg Tab 500 MG PO DAILY Infection #5 Ref 0 TAB Cefuroxime (Cefuroxime) 500 Mg Tab 500 MG PO BID Infection #10 Ref 0 TAB Rivaroxaban (Xarelto) 15 Mg Tab 15 MG PO BID 15mg PO BID x 20 days, then 20mg daily. PE #40 Ref 0 TAB Continued Medications: Amitriptyline (Amitriptyline) 25 Mg Tab 25 MG PO HS TAB Arginine (l-Arginine) 500 Mg Capsule 500 MG PO DAILY Belimumab Inj (Benlysta Inj) 400 Mg Inj Unknown Dose IV every 4 weeks Biotin (Biotin) 5 Mg Cap 5 MG PO BID Nutritional Supplement #1 Ref 0 BOTTLE Celecoxib (Celebrex) 200 Mg Cap 200 MG PO BID Pain Management Ref 0 CAP Cholecalciferol (Vitamin D3) 1,000 Unit Tab 1000 UNITS PO DAILY Nutritional Supplement #1 Ref 0 BOTTLE Escitalopram (Lexapro) 20 Mg Tab 20 MG PO HS #30 Ref 0 TAB Fentanyl Patch 72 HR (Fentanyl Patch 72 HR) 25 Mcg/Hr Patch 25 MCG T-DERMAL Q72H Pain Management #10 Ref 0 PATCH Folic Acid (Folic Acid) 1 Mg Tablet 1 MG PO [id number] Glucosamine/Chondroitin/Vit D3 (Zanwsdfg-Nkifpp-Htk D3 Tab) 1 Each Tablet 1 TAB PO QID Levocarnitine l-Tartrate (l-Carnitine) 250 Mg Cap 250 MG PO DAILY Methotrexate (Methotrexate) 2.5 Mg Tab 20 MG PO SATURDAY Ref 0 TAB Metoprolol Tartrate (Metoprolol Tartrate) 25 Mg Tab 12.5 MG PO BID #60 Ref 0 TAB Nitroglycerin Patch 24 HR (Nitro-Dur Patch 24 HR) 0.1 Mg/Hr Patch 1 PATCH T-DERMAL DAILY Chest Pain #30 Ref 0 PATCH Omeprazole (Omeprazole) 40 Mg Cap 40 MG PO HS #30 Ref 0 CAP Tizanidine (Tizanidine) 4 Mg Tab 4 MG PO HS Muscle Spasm Ref 0 TAB Barry Nix MD Jan 22, 2017 11:05
[2017-01-22 12:00] VITALS: BP 122/59; PULSE 85; RESP 20; TEMP 97.8; O2SAT 96
[2017-01-23] MEDS ORDERED: METHOTREXATE 2.5 MG TAB PO SCH (15:00)
[2017-01-23 19:52] LABS: BETA2 GLYCOPROTEIN I AB IGA LESS THAN 9.0 SAU (< OR = 20)
== END 2017-01-22 13:20 | disposition home or self-care (01) | DRG 175 ==
LOC: NEPE 16:24 → NEDA 22:38 → N04B 01-19 00:21
PROVIDERS: ADMIT Family Medicine; ATTEND Family Medicine
DX: I26.99 Other pulmonary embolism without acute cor pulmonale (principal); J18.9 Pneumonia, unspecified organism; M32.9 Systemic lupus erythematosus, unspecified; G89.29 Other chronic pain; Z87.440 Personal history of urinary (tract) infections; M06.9 Rheumatoid arthritis, unspecified; M54.6 Pain in thoracic spine; Z79.899 Other long term (current) drug therapy; D64.9 Anemia, unspecified
CPT/HCPCS: 71010; 71275; 76937; 80048; 80053; 81240; 81241; 81291; 82550; 83090; 83605; 83735; 84484; 84702; 85025; 85300; 85303; 85306; 85307; 85379; 85597; 85598; 85610; 85613; 85730; 86038; 86039; 86146; 86147; 86148; 87040; 93005; 93970; 94150; 96365; 96375; J0456; J0696; J1650; J7030; J7050; Q9967